=== PATIENT | male | born 1995 | race Caucasian/White ===

== ENCOUNTER 2019-04-08 21:21 | Emergency (ER) | payer BC ==
[~2019-04-08] VITALS: Ht 177.8 cm; Wt 72.6 kg
[2019-04-08] MEDS ORDERED: NORCO 5-325 TA1 EACH PO (22:24)
== END 2019-04-08 23:38 | disposition home or self-care (01) ==
LOC: ED 21:21
PROC: 0RSKXZZ Reposition Left Shoulder Joint, External Approach (ICD-10-PCS; principal; 2019-04-08)
DX: S43.005A Unspecified dislocation of left shoulder joint, initial encounter (principal); Z88.0 Allergy status to penicillin; X58.XXXA Exposure to other specified factors, initial encounter; Y93.67 Activity, basketball
CPT/HCPCS: 23650; 73030; 99283-25; J2405; J2704; J3010; J7030